=== PATIENT | female | born 1950 | race Caucasian/White ===

== ENCOUNTER 2016-08-03 08:00 | Outpatient (RCR) | payer BC ==
[2016-08-02 11:13] LABS: BASOPHILS % (AUTO) 0 % (0-10); EOSINOPHILS % (AUTO) 0 % (0-10); LYMPHOCYTES # (AUTO) 0.4 X 10^3 (1.0-4.0); LYMPHOCYTES % (AUTO) 5 % (12-44); MEAN CORPUSCULAR HEMOGLOBIN 31 PG (25-34); MEAN CORPUSCULAR HGB CONC 35 G/DL (32-36); MEAN CORPUSCULAR VOLUME 89 FL (80-99); MEAN PLATELET VOLUME 9.1 FL (7.4-10.4); MONOCYTES # (AUTO) 0.6 X 10^3 (0.0-1.0); MONOCYTES % (AUTO) 7 % (0-12); NEUTROPHILS # (AUTO) 7.9 X 10^3 (1.8-7.8); NEUTROPHILS % (AUTO) 88 % (42-75); PLATELET COUNT 284 10^3/uL (130-400); RED BLOOD COUNT 3.65 10^6/uL (4.35-5.85); RED CELL DISTRIBUTION WIDTH 12.4 % (10.0-14.5)
[2016-08-02 11:42] LABS: LYMPHOCYTES % (MANUAL) 4 %; NEUTROPHILS % (MANUAL) 86 %
--- NOTE | 2016-08-02 11:46 | Diagnostic Imaging Report ---
EXAMINATION: PA and lateral views of the chest. INDICATION: Cough and dyspnea. FINDINGS: There is a medial left lower lobe infiltrate suggested. The right lung is clear. The heart size is normal. No effusion or pneumothorax. Mediastinum and liberty appear unremarkable. IMPRESSION: Medial left lung base infiltrate. Report was faxed to the office of Rossy Thompson by mayra at 11:48 am. Dictated by: Dictated on workstation # [id number]
[~2016-08-03 08:00] MED LIST: CYCL10TA9 PO
== END 2016-08-03 08:30 | disposition home or self-care (01) ==
LOC: RAD 08:00 → EDSTATUS 08-05 03:04
PROVIDERS: ATTEND Nurse Practitioner
DX: R05 Cough (principal); R06.00 Dyspnea, unspecified; R91.8 Other nonspecific abnormal finding of lung field
CPT/HCPCS: 36415; 71020; 85007; 85027; 87070; 87205

== ENCOUNTER → 2016-08-17 | Outpatient (CLI) | payer BC ==
--- NOTE | 2016-08-17 16:29 | Diagnostic Imaging Report ---
INDICATION: Cough, when she takes deep breaths sharp pain in her left axillary region. FINDINGS: A frontal and lateral view of the chest is compared to an exam from August 02, 2016. The medial left lower lung infiltrate has nearly resolved. Heart size and vascularity are normal. There are no pleural effusions. IMPRESSION: The previous infiltrate is nearly completely resolved. No acute findings are present. Dictated by: Dictated on workstation # [id number]
== END ==
LOC: RAD 15:30
PROVIDERS: ATTEND Nurse Practitioner
DX: R91.8 Other nonspecific abnormal finding of lung field (principal)
CPT/HCPCS: 71020

== ENCOUNTER → 2019-01-14 | Outpatient (CLI) | payer MEDICARE, OTHER ==
--- NOTE | 2019-01-14 15:24 | Diagnostic Imaging Report ---
PROCEDURE: US carotid duplex, bilateral. TECHNIQUE: Multiple real-time grayscale images were obtained over the carotid arteries in various projections, bilaterally. Additional spectral analysis and color Doppler duplex images were also obtained. INDICATION: Dizziness. FINDINGS: Minimal plaquing is seen at the proximal left ICA. Velocities are normal bilaterally. No velocity elevation or stenosis is seen. Both vertebral arteries show antegrade flow. IMPRESSION: No evidence of a hemodynamically significant stenosis. Parameters based on the consensus panel Black-Scale and Doppler ultrasound criteria published May 2003, Radiology, Volume 229. DOPPLER (peak systolic velocity M/S Right Left CCA .82 .81 ICA Proximal .55 .96 ICA Mid .80 .97 ICA Distal .82 .88 RATIO 1.0 1.2 ECA .54 .50 VERT .32 .37 Dictated by: Dictated on workstation # [id number]
== END ==
LOC: RAD 14:24
PROVIDERS: ATTEND Family Medicine
DX: R42 Dizziness and giddiness (principal)
CPT/HCPCS: 93880

== ENCOUNTER → 2019-03-08 | Outpatient (CLI) | payer MEDICARE, OTHER ==
--- NOTE | 2019-03-08 08:15 | Diagnostic Imaging Report ---
CLINICAL HISTORY: Right-sided shoulder pain for several months. Worsening. COMPARISON: CT cervical spine on 03/21/2012 TECHNIQUE: 3 views of the cervical spine. FINDINGS: No acute fracture or dislocation is seen in the cervical spine. The cervical spine is visualized to the C7-T1 level. Vertebral body heights are well-maintained. There is anatomic alignment of the cervical spine. No focal osseous lesions. Mild multilevel degenerative changes are present in the cervical spine with marginal osteophytes and uncovertebral arthropathy. Views of the odontoid demonstrate no fracture or or abnormality. The soft tissues of the neck are unremarkable. Included lungs are clear. IMPRESSION: 1. No acute fracture or dislocation in the cervical spine. Dictated by: Dictated on workstation # [id number]
--- NOTE | 2019-03-08 08:34 | Diagnostic Imaging Report ---
INDICATION: Right shoulder pain for several months. Worse at night. COMPARISON: Chest radiograph on 08/17/2016 TECHNIQUE: 3 views of the right shoulder. FINDINGS: No acute fracture or dislocation is seen in the right shoulder. Degenerative changes are present in the right shoulder with osteophytes at the greater tuberosity at the insertion site of the rotator cuff. Degenerative changes are also present in the right acromioclavicular joint. No large joint effusion is seen. The surrounding soft tissues of the right shoulder are unremarkable. Included views of the right chest demonstrate no acute abnormalities. IMPRESSION: 1. No acute fracture or dislocation is seen in the right shoulder. 2. Moderate osteoarthritis of the right shoulder. Dictated by: Dictated on workstation # [id number]
== END ==
LOC: RAD 07:53
PROVIDERS: ATTEND Family Medicine
DX: M19.011 Primary osteoarthritis, right shoulder (principal); M47.812 Spondylosis without myelopathy or radiculopathy, cervical region
CPT/HCPCS: 72040; 73030

== ENCOUNTER 2020-01-17 17:40 | Emergency (ER) | payer MEDICARE, OTHER ==
[~2020-01-17] VITALS: Ht 160 cm; Wt 64.5 kg
--- NOTE | 2020-01-17 17:58 | ED Lower Extremity ---
General Chief Complaint: Lower Extremity Stated Complaint: L ANKLE PAIN/SWOLLEN Source: patient Exam Limitations: no limitations History of Present Illness Date Seen by Provider: Jan 17, 2020 Time Seen by Provider: 17:56 Initial Comments To ER with left lateral ankle and foot pain and swelling. This began after she twisted her ankle stepping on a stepping stone last week. Pain has persisted and so she decided to get this checked out today. Onset: just prior to arrival Severity: moderate Pain/Injury Location: left foot, left ankle Modifying Factors: Worse With Movement Allergies and Home Medications Allergies Coded Allergies: No Known Drug Allergies (Unverified , 03/21/12) Home Medications Cyclobenzaprine Hcl 10 Mg Tablet, 1 EACH PO Q8HR Prescribed by: JOEL RAHMAN on 03/21/122044 Patient Home Medication List Home Medication List Reviewed: Yes Review of Systems Constitutional: see HPI EENTM: see HPI Respiratory: no symptoms reported Cardiovascular: no symptoms reported Genitourinary: no symptoms reported Musculoskeletal: see HPI Skin: no symptoms reported Psychiatric/Neurological: No Symptoms Reported Past Stgemfd-Smzekw-Lfwjss Hx Patient Social History Recent Foreign Travel: No Contact w/Someone Who Travel: No Physical Exam Vital Signs Vital Signs - First Documented 01/17/20 17:44 Pulse 73 Resp 18 B/P (MAP) 141/69 (93) Pulse Ox 96 Capillary Refill : Height, Weight, BMI Height: '" Weight: lbs. oz. kg; BMI Method:Stated General Appearance: WD/WN, no apparent distress Respiratory: no respiratory distress, no accessory muscle use Gastrointestinal: soft Hips: bilateral hip non-tender, bilateral hip normal inspection, bilateral hip normal range of motion Legs: bilateral leg non-tender, bilateral leg normal inspection, bilateral leg normal range of motion Knees: bilateral knee non-tender, bilateral knee normal inspection, bilateral knee normal range of motion Ankles: left ankle pain, left ankle soft tissue tenderness, left ankle swelling Feet: left foot pain, left foot soft tissue tenderness, left foot swelling Neurologic/Psychiatric: alert, normal mood/affect, oriented x 3 Skin: normal color, warm/dry Progress/Results/Core Measures Results/Orders My Orders Orders - ESPERANZA GOLD APRN Foot, Left, 3 Views (01/17/20 17:51) Ankle, Left, 3 Views (01/17/20 17:51) Vital Signs/I&O 01/17/20 17:44 Pulse 73 Resp 18 B/P (MAP) 141/69 (93) Pulse Ox 96 Departure Impression Primary Impression: Sprain and strain of ankle Disposition: 01 HOME, SELF-CARE Condition: Stable Departure-Patient Inst. Decision time for Depature: 18:34 Referrals: BLAYNE CABRERA DO (PCP/Family) Primary Care Physician Patient Instructions: Ankle Sprain (DC) Add. Discharge Instructions: . Elevate the foot as much as possible. Follow-up with your doctor next week 3. Return to ER for any concerns. All discharge instructions reviewed with patient and/or family. Voiced understanding. ESPERANZA GOLD [employer] RECORDER Jan 17, 2020 17:58
--- NOTE | 2020-01-17 18:30 | Diagnostic Imaging Report ---
EXAMINATION: Left foot 3 views HISTORY: Trauma COMPARISON: None available. FINDINGS: There is a small heel spur. Alignment is normal. No fracture is seen. Joint spaces are normal. IMPRESSION: 1. No fracture. Dictated by: Dictated on workstation # [id number]
--- NOTE | 2020-01-17 18:32 | Diagnostic Imaging Report ---
EXAMINATION: Left ankle 3 views HISTORY: Trauma COMPARISON: None available. FINDINGS: Mortise is intact. Alignment is normal. No fracture is seen. Joint spaces are normal. IMPRESSION: 1. No fracture. Dictated by: Dictated on workstation # [id number]
[2020-01-17 18:46] VITALS: BP 141/69
== END 2020-01-17 18:46 | disposition home or self-care (01) ==
LOC: EDUNIT# 17:40 → ER 17:41
DX: S93.402A Sprain of unspecified ligament of left ankle, initial encounter (principal); S96.912A Strain of unspecified muscle and tendon at ankle and foot level, left foot, initial encounter; X50.1XXA Overexertion from prolonged static or awkward postures, initial encounter
CPT/HCPCS: 73610; 73630

== ENCOUNTER → 2020-06-08 | Outpatient (CLI) | payer MEDICARE, OTHER ==
--- NOTE | 2020-06-08 12:20 | Diagnostic Imaging Report ---
INDICATION: Cough, recent pneumonia with left posterior rib pain post recent fall.. TECHNIQUE: 3 views left ribs, 12:11 PM. CORRELATION STUDY: None FINDINGS: There is no acute displaced left-sided rib fracture. Visualized left lung clear and unremarkable. IMPRESSION: 1. Negative for acute displaced left rib fracture. Dictated by: Dictated on workstation # [id number]
--- NOTE | 2020-06-08 12:21 | Diagnostic Imaging Report ---
INDICATION: COUGH, RECENT PNEUMONIA, L POSTERIOR RIB PAIN. TECHNIQUE: Two view chest 12:09 PM CORRELATION STUDY: None FINDINGS: The heart size, mediastinal configuration and pulmonary vasculature are within normal limits. The lungs are very mildly hyperinflated. However, overall appearing clear with no consolidating infiltrate. There is no significant pleural effusion or pneumothorax. Visualized osseous structures are unremarkable. IMPRESSION: 1. Negative for acute abnormality of the chest. Dictated by: Dictated on workstation # [id number]
== END ==
LOC: RAD 11:37
PROVIDERS: ATTEND Family Medicine
DX: J18.9 Pneumonia, unspecified organism (principal); R07.81 Pleurodynia
CPT/HCPCS: 71046; 71100

== ENCOUNTER → 2020-06-23 | Outpatient (CLI) | payer MEDICARE, OTHER | LOC: LAB 09:12 | PROVIDERS: ATTEND Family Medicine | DX: Z20.828 Contact with and (suspected) exposure to other viral communicable diseases (principal) | CPT/HCPCS: 36415; 86769; 86900; 86901 ==

== ENCOUNTER → 2020-07-09 | Outpatient (CLI) | payer MEDICARE, OTHER ==
--- NOTE | 2020-07-09 14:54 | Diagnostic Imaging Report ---
Indication: Fall and back pain. Time of exam: 2:38 PM There is a compression deformity involving mid thoracic vertebral body, approximately T6. This appears though to have present on the chest radiograph from 06/08/2020 although there could be some slight further loss of height of the vertebral body. Remaining thoracic vertebrae show normal stature. Pedicles are intact. Paraspinous intact IMPRESSION: T6 compression fracture, perhaps subacute. This was present one month earlier but there may be slight further loss of height. If clinically indicated, MRI of thoracic spine can be performed for further characterization. Dictated by: Dictated on workstation # [id number]
== END ==
LOC: RAD 14:04
PROVIDERS: ATTEND Nurse Practitioner Family
DX: S22.059A Unspecified fracture of T5-T6 vertebra, initial encounter for closed fracture (principal); W19.XXXA Unspecified fall, initial encounter
CPT/HCPCS: 72072

== ENCOUNTER → 2020-07-15 | Outpatient (CLI) | payer MEDICARE, OTHER ==
--- NOTE | 2020-07-15 15:18 | Diagnostic Imaging Report ---
EXAMINATION: MR of the thoracic spine without contrast. INDICATION: Back pain. Multiple images utilizing T1 and T2-weighted sequences were obtained. There are no prior MRI thoracic spine examinations available for comparison. The recent plain film exam of 07/09/2020 did note a subacute compression fracture of T6. On the T1 parasagittal images there is indeed a 20-30% compression deformity involving the superior endplate of T6. There is also diffusely diminished signal throughout the compressed vertebral body of T6 with sparing of the inferior endplate. The STIR series shows corresponding increased signal throughout T6. This appearance does suggest a subacute compression deformity. There is no other abnormal signal arising from the osseous structures to suggest bone edema or a fracture. There is moderate degenerative disc disease throughout the thoracic spine. The thecal sac is relatively generous. There is no evidence for spinal stenosis or nerve root encroachment at any level. There is no sign of a paraspinal mass. IMPRESSION: 1. There is a 20-30% subacute compression fracture of T6. This may be amenable to kyphoplasty, if clinically indicated. 2. There is no acute bony abnormality noted otherwise. 3. There is moderate degenerative disc disease throughout the thoracic spine but there is no evidence for spinal stenosis or nerve root encroachment at any level. Dictated by: Dictated on workstation # [id number]
== END ==
LOC: RAD 13:37
PROVIDERS: ATTEND Family Medicine
DX: M48.54XA Collapsed vertebra, not elsewhere classified, thoracic region, initial encounter for fracture (principal); M47.814 Spondylosis without myelopathy or radiculopathy, thoracic region
CPT/HCPCS: 72146

== ENCOUNTER → 2020-08-18 | Outpatient (CLI) | payer MEDICARE, OTHER ==
--- NOTE | 2020-08-18 15:45 | Diagnostic Imaging Report ---
INDICATION: Postmenopausal state. COMPARISON: None available FINDINGS: AP Spine L1-L4: [BMD (g/cm2): 0.830] [T-Score: -3.1] [Z-Score: -1.5] [BMD Previous: na] [BMD % Change: na] LT Hip Neck: [BMD (g/cm2): 0.791] [T-Score: -1.8] [Z-Score: -0.2] LT Hip Total: [BMD (g/cm2):0.897] [T-Score:-0.9] [Z-Score: 0.5] [BMD Previous: na] [BMD % Change: na] RT Hip Neck: [BMD (g/cm2):0.769] [T-Score:-1.9] [Z-Score:-0.3] RT Hip Total: [BMD (g/cm2):0.850] [T-score:-1.2] [Z-Score:0.1] [BMD Previous:na] [BMD % Change:na] *Indicates significant change from prior examination based on 95% confidence level. World Health Organization criteria for BMD interpretation classify patients as Normal (T-score at or above -1.0), Osteopenic (T-score between -1.0 and -2.5) or Osteoporotic (T-score at or below -2.5). LIMITATIONS AND MODIFICATION: None. FRACTURE RISK (FRAX SCORE): The ten year probability of (%): Major Osteoporotic Fracture: [18.4] Hip Fracture: [3.2] IMPRESSION: 1. Osteoporosis. 2. Baseline examination. 3. See below National Osteoporosis Foundation guidelines on when to potentially initiate pharmacologic therapy. Based on the National Osteoporosis Foundation Guidelines, pharmacologic treatment should be initiated in any of the following, unless clinical conditions suggest otherwise: * Any patient with prior fragility fracture of the hip or vertebrae. A spine fracture indicates 5X risk for subsequent spine fracture and 2X risk for subsequent hip fracture. * Osteoporosis (T-score <-2.5). * Postmenopausal women and men age 50 and older with low bone mass/osteopenia (T-score between -1.0 and -2.5) by DXA and 10-year major osteoporotic fracture greater than 20% or a 10-year probability of hip fracture greater than 3%. These fracture risks are supplied above in the FRAX score, if applicable. * Clinician judgement and/or patient preferences may indicate treatment for people with 10-year fracture probabilities above or below these levels. Dictated by: Dictated on workstation # [id number]
== END ==
LOC: RAD 14:12
PROVIDERS: ATTEND Family Medicine
DX: M48.54XA Collapsed vertebra, not elsewhere classified, thoracic region, initial encounter for fracture (principal); M81.0 Age-related osteoporosis without current pathological fracture
CPT/HCPCS: 77080

== ENCOUNTER → 2020-11-24 | Outpatient (CLI) | payer MEDICARE ==
--- NOTE | 2020-11-24 18:24 | Diagnostic Imaging Report ---
EXAM: T-SPINE 3V-AP, LAT, SWIMMERS INDICATION: Follow-up T6 compression fracture. COMPARISON: MRI thoracic spine without contrast 07/15/2020. FINDINGS: Anterior wedging of the T6 vertebral body results in approximately 50% height loss anteriorly, similar to the prior exam. Vertebral body heights appear otherwise preserved. No new compression fractures are identified. Mild scattered degenerative endplate changes. IMPRESSION: Stable anterior wedging of the T6 vertebral body resulting in approximately 50% height loss anteriorly. Dictated by: Dictated on workstation # [id number]
== END ==
LOC: RAD 14:23
PROVIDERS: ATTEND Family Medicine
DX: S22.050A Wedge compression fracture of T5-T6 vertebra, initial encounter for closed fracture (principal)
CPT/HCPCS: 72072

== ENCOUNTER 2021-02-17 08:05 | Emergency (ER) | payer MEDICARE, OTHER ==
[~2021-02-17] VITALS: Ht 162 cm; Wt 63.6 kg
[2021-02-17] MEDS ORDERED: KETOROLAC 30 MG/ML VIAL IM ONE (10:00)
[2021-02-17] MEDS ORDERED: ORPHENADRINE 60 MG/2 ML (NORFLEX) AMP (ED ONLY) IM ONE (10:00)
--- NOTE | 2021-02-17 10:08 | ED Back Pain ---
General Chief Complaint: General Problems/Pain Stated Complaint: R SHOULDER PAIN Nursing Triage Note: AMB TO ROOM WITH C/O TANA SHOULDER WITH RADIATION TO TANA THIGH HAS NOT TAKEN ANYTHING FOR PAIN. PAIN ONSET THIS AM PATIENT REPORTS SHE STARTED A NEW JOB. FEPORTS DID HAVE A FALL IN NOV. DID CALL INTO WORK Source of Information: Patient Exam Limitations: No Limitations (BOZENA VALENZUELA,ELLI STUDENT) History of Present Illness Date Seen by Provider: Feb 17, 2021 Time Seen by Provider: 09:15 Initial Comments Beatriz Henry is a 70yo F with PMH of osteoporosis who presents with CC of shoulder/back pain. She states that at 2:08AM she was awakened by a sharp pain located primarily in her right scapula and radiates at times to her left buttock. She began to feel better after a hot shower around 5AM, but the pain returned. She has had recent onset dysphonia for several days as well. She recalls no trauma to the shoulder and denies chest pain, nausea, light- headedness, cough, and SOB. There are no sensory or motor deficits in the R extremity. 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 She has not tried any medications at home for symptom relief. Location: Other (R scapula, L buttock) Timing/Duration: 4-6 Hours Severity: Mild, Moderate Pain/Injury Location: Back Radiation: Buttocks (L) Method of Injury: Unknown Modifying Factors: Worse With Movement Associated Symptoms: denies symptoms (BOZENA VALENZUELA,ELLI STUDENT) Allergies and Home Medications Allergies Coded Allergies: No Known Drug Allergies (Unverified , 03/21/12) Home Medications Cyclobenzaprine Hcl 10 Mg Tablet, 1 EACH PO Q8HR Prescribed by: JOEL RAHMAN on 03/21/122044 Review of Systems Constitutional: no symptoms reported EENTM: see HPI, hoarseness Respiratory: no symptoms reported Cardiovascular: no symptoms reported Gastrointestinal: no symptoms reported Genitourinary: no symptoms reported : No Musculoskeletal: back pain Skin: no symptoms reported Psychiatric/Neurological: No Symptoms Reported (BOZENA VALENZUELA,ELLI STUDENT) Past Haqoxvi-Fqhtxw-Yraceo Hx Patient Social History Tobacco Use?: No Substance use?: No Alcohol Use?: No Pt feels they are or have been: No (BOZENA VALENZUELA,MED STUDENT) Past Medical History Surgeries: Yes Tubal Ligation Cardiac: No Neurological: No Genitourinary: No Gastrointestinal: No Musculoskeletal: No Endocrine: No HEENT: No Cancer: No Psychosocial: No (BOZENA VALENZUELA,MED STUDENT) Physical Exam Vital Signs Vital Signs - First Documented 02/17/21 08:17 Temp 36.6 Pulse 83 Resp 18 B/P (MAP) 188/98 (128) Pulse Ox 99 O2 Delivery Room Air (JOEL PIÑA MD) Vital Signs Capillary Refill : Less Than 3 Seconds (OBZENA VALENZUELA,MED STUDENT) Height, Weight, BMI Height: '" Weight: lbs. oz. kg; 24.00 BMI Method:Stated General Appearance: No Apparent Distress, WD/WN HEENT: PERRL/EOMI Neck: Full Range of Motion, Normal Inspection, Non Tender Cardiovascular: Regular Rate, Rhythm Respiratory: Lungs Clear, Normal Breath Sounds (d) Peripheral Pulses: 3+ Radial Pulses (R), 3+ Radial Pulses (L) Gastrointestinal: Non Tender, Soft Back: Muscle Spasm Extremity: Normal Capillary Refill, Normal Range of Motion Neurologic/Psychiatric: Alert, Oriented x3, Normal Mood/Affect Skin: Normal Color, Warm/Dry (BOZENA VALENZUELA,MED STUDENT) Progress/Results/Core Measures Results/Orders My Orders Orders - JOEL PIÑA MD Ketorolac Injection (Toradol Injection) (02/17/21 10:00) Orphenadrine Inj (Ed Only) (Norflex Inje (02/17/21 10:00) Mri Thoracic Spine W/O Con (02/17/21 09:56) Mri Lumbar Spine W/O Contrast (02/17/21 11:05) (JOEL PIÑA MD) Medications Given in ED Current Medications Medications Dose Ordered Sig/Gelacio Route Start Time Stop Time Status Last Admin Dose Admin Ketorolac Tromethamine 30 mg ONCE ONCE IM 02/17/21 10:00 02/17/21 10:01 DC 02/17/21 10:04 30 MG Orphenadrine Citrate 30 mg ONCE ONCE IM 02/17/21 10:00 02/17/21 10:01 DC 02/17/21 10:05 30 MG (JOEL PIÑA MD) Vital Signs/I&O 02/17/21 08:17 Temp 36.6 Pulse 83 Resp 18 B/P (MAP) 188/98 (128) Pulse Ox 99 O2 Delivery Room Air (JOEL PIÑA MD) Blood Pressure Mean: 128 Progress Progress Note : Progress Note On initial examination there is no tenderness in the musculoskeletal structures of the right upper back. However, on reexamination she was found to have some focal muscular tenderness just medial to the right scapular edge. I did discuss treatment options with the patient and offered Toradol and Norflex which she accepted. Patient did have complete relief with these medications. We also discussed further imaging given her history of osteoporosis, compression fracture, and new pain radiating into the left buttock region. I discussed the situation with Dr. Potter regarding further imaging modalities. He and I agree that MRI is the most appropriate modality to pursue. MRI of the thoracic and lumbar spine were ordered and reads are currently pending. (JOEL PIÑA MD) Departure Impression Primary Impression: Muscle spasm of back Additional Impressions: Compression fracture of T6 vertebra Qualified Codes: S22.050D - Wedge compression fracture of t5-T6 vertebra, subsequent encounter for fracture with routine healing Multilevel neural foraminal stenosis Left buttock pain Disposition: 01 HOME, SELF-CARE Condition: Improved Departure-Patient Inst. Decision time for Depature: 12:54 (JOEL PIÑA MD) Referrals: BLAYNE CABRERA DO (PCP/Family) Primary Care Physician Patient Instructions: Vertebral Compression Fracture Add. Discharge Instructions: For pain try taking Tylenol (acetaminophen) up to 1000 mg every 6 hours as needed. For breakthrough pain, you may take ibuprofen up to 400 mg every 6 hours as needed. For muscle spasms or tension you may take cyclobenzaprine as prescribed. This muscle relaxer may cause drowsiness so use with caution. Do not drive or operate machinery while on this medication. Follow-up with your primary care provider and/or graphic specialist in the near future. Call with questions or concerns. Return to the ER if you have worsening symptoms. All discharge instructions reviewed with patient and/or family. Voiced understanding. Scripts Cyclobenzaprine HCl (Cyclobenzaprine HCl) 10 Mg Tablet 10 MG PO Q8H PRN for SPASMS, #15 TAB 0 Refills Prov: JOEL PIÑA MD 02/17/21 Medical Student Attestation and Attending Note: I have personally interviewed and examined this patient along with Rahul Valenzuela, MS 4. I have reviewed student documentation including history, physical, and assessments. I agree with the documentation except where otherwise noted. Exam: General: Alert, oriented, no acute distress, well developed HEENT: Normocephalic and atraumatic Heart: Regular rate and rhythm without murmur Lungs: Clear to auscultation bilaterally with normal effort Back: Point tenderness in the musculature just medial to the right scapular edge Neuropsych: Alert, oriented, no focal deficits Skin: Warm and dry without rashes (JOEL PIÑA MD) BOZENA VALENZUELA,MED STUDENT Feb 17, 2021 10:08 JOEL PIÑA MD Feb 17, 2021 11:38
--- NOTE | 2021-02-17 12:09 | Diagnostic Imaging Report ---
PROCEDURE: MRI lumbar spine. TECHNIQUE: Multiplanar, multisequence MRI of the lumbar spine was performed without contrast. INDICATION: Back pain. Osteoporosis. COMPARISON: None. FINDINGS: There are five lumbar-type vertebral bodies for the purposes of this report. Normal alignment. Vertebral body heights are preserved. Mild scattered Modic type I degenerative endplate changes. Bone marrow signal is otherwise unremarkable. No abnormal signal in the conus which terminates at L1-L2. Normal morphology of the cauda equina. L1-L2: Mild facet arthropathy. No spinal canal, lateral recess or neuroforaminal narrowing. L2-L3: Mild facet arthropathy. No spinal canal, lateral recess or neural foraminal narrowing. L3-L4: Moderate facet arthropathy contributes to moderate bilateral lateral recess narrowing. No spinal canal narrowing. Severe right and moderate left neural foraminal narrowing. L4-L5: Facet arthropathy results in moderate bilateral lateral recess narrowing. No spinal canal narrowing. [id number] bilateral neural foraminal narrowing. L5-S1: Advanced facet arthropathy. No substantial spinal canal, lateral recess or neural foraminal narrowing. IMPRESSION: 1. No compression deformities or acute osseous findings in the lumbar spine. 2. Spondylotic changes result in scattered high-grade lateral recess and neural foraminal narrowing detailed above. No high-grade spinal canal stenosis. Dictated by: Dictated on workstation # [id number]
--- NOTE | 2021-02-17 12:33 | Diagnostic Imaging Report ---
INDICATION: Increasing back pain. Patient has prior history of T6 compression fracture. TECHNIQUE: Multiplanar, multisequence imaging of the thoracic spine was performed without contrast. CORRELATION: Prior MRI of the thoracic spine from 07/15/2020. FINDINGS: The curvature and alignment of the thoracic spine are normal. The previously noted compression fracture at T6 is again noted. There has been some loss of stature of that vertebral body; however, the overall stature is similar to a study from July. Edema noted throughout the marrow at the T6 level has resolved. There is no retropulsion. The remaining thoracic vertebrae show normal stature and normal marrow signal. No new compression fracture is identified. There is some generalized degenerative disc disease with disc desiccation and variable disc space narrowing. There is normal homogeneous signal intensity and normal morphology throughout the thoracic spinal cord. No abnormal cord signal is detected. The central canal is widely patent. The neuroforamina appear to be patent. The paraspinous tissues are unremarkable. IMPRESSION: 1. Chronic T6 compression fracture. No new compression fracture is identified. 2. Generalized thoracic spondylosis. No central canal or neuroforaminal stenosis is identified. Dictated by: Dictated on workstation # [id number]
[2021-02-17] MEDS ORDERED: CYCL10TA9 PO (12:55)
[2021-02-17 13:01] VITALS: BP 148/70
== END 2021-02-17 13:01 | disposition home or self-care (01) ==
LOC: EDUNIT# 08:05 → ER 08:10
DX: S22.050A Wedge compression fracture of T5-T6 vertebra, initial encounter for closed fracture (principal); M48.00 Spinal stenosis, site unspecified; M81.0 Age-related osteoporosis without current pathological fracture; X58.XXXA Exposure to other specified factors, initial encounter
CPT/HCPCS: 72146; 72148; 96372